=== PATIENT | male | born 1970 | race Caucasian/White ===

== ENCOUNTER → 2016-10-24 | Outpatient (CLI) | payer MEDICARE, OTHER | LOC: ECHO 13:40 | DX: I87.303 Chronic venous hypertension (idiopathic) without complications of bilateral lower extremity (principal); F17.200 Nicotine dependence, unspecified, uncomplicated; R60.0 Localized edema | CPT/HCPCS: ECHO; 93306 ==

== ENCOUNTER → 2022-03-10 | Outpatient (CLI) | payer MEDICARE, OTHER | LOC: EXRD 02-24 11:30 | DX: E03.9 Hypothyroidism, unspecified (principal); I87.2 Venous insufficiency (chronic) (peripheral) | CPT/HCPCS: 76536 ==

== ENCOUNTER → 2022-03-16 | Outpatient (CLI) | payer MEDICARE, OTHER | LOC: EMI 10:49 | DX: M47.812 Spondylosis without myelopathy or radiculopathy, cervical region (principal) | CPT/HCPCS: 72141 ==